=== PATIENT | female | born 1955 | race Caucasian/White ===

== ENCOUNTER → 2017-05-14 | Day surgery (SDC) | payer OTHER ==
[2017-05-08 15:44] LABS: BASOPHILS % 0.7 % (0.0-1.0); EOSINOPHILS # (AUTO) 0.1 (0.0-0.4); EOSINOPHILS % 1.4 % (0.0-6.0); HEMATOCRIT 41.4 % (34.2-44.1); HEMOGLOBIN 14.1 g/dL (12.0-16.0); LYMPHOCYTES # (AUTO) 1.2 (1.0-3.2); LYMPHOCYTES % 22.3 % (18.0-39.1); MEAN CORPUSCULAR HEMOGLOBIN 30.2 pg (28-32); MEAN CORPUSCULAR HGB CONC 34.1 g/dL (31-35); MEAN CORPUSCULAR VOLUME 88.7 fL (81-99); MONOCYTES # (AUTO) 0.5 (0.2-0.8); MONOCYTES % 8.6 % (4.4-11.3); NEUTROPHILS # (AUTO) 3.7 (2.1-6.9); NEUTROPHILS % 66.6 % (38.7-80.0); PLATELET COUNT 200 x10e3/uL (140-360); RED BLOOD COUNT 4.67 x10e6/uL (3.6-5.1); RED CELL DISTRIBUTION WIDTH 12.2 % (11.7-14.4)
[~2017-05-14] MED LIST: ANASTROZOLE1 MG PO; COQ-10100 MG PO; FENTANYL CITRATE/PF 100MCG/2 ML INJ ONE; MIDAZOLAM HCL 2 MG/2 ML VIAL ONE; PROPOFOL IV EMULSION 10 MG/ML 20 ML VIAL IV ONE; SIMVASTATIN40 MG PO
--- NOTE | 2017-05-14 08:26 | Operative Report ---
DATE OF PROCEDURE: May 14, 2017 PROCEDURE: Colonoscopy. PREOPERATIVE DIAGNOSIS: Patient with a family history of colon cancer, here for colon cancer screening. PROCEDURE: After informed written consent, premedications with monitored anesthesia care, standard adult video Olympus colonoscope was introduced into the rectum and all the way into the terminal ileum. The terminal ileum, cecum and appendiceal orifice all appeared to be normal. The ascending colon and transverse colon appeared to be normal. The descending and sigmoid showed scattered diverticulosis more so in the area of the sigmoid colon. Retroflexion in the rectum was normal. IMPRESSION: Diverticulosis in the sigmoid and descending colon. RECOMMENDATIONS: Stool for occult blood for every 2-3 years. Repeat colonoscopy in 5 years. Probiotics as needed. Patient to follow up in the office. Job#: [id number] RI cc:MAXWELL TALBERT MD
== END | disposition home or self-care (01) ==
LOC: OR 05:37
PROVIDERS: ATTEND Internal Medicine Gastroenterology
DX: Z12.11 Encounter for screening for malignant neoplasm of colon (principal); K57.30 Diverticulosis of large intestine without perforation or abscess without bleeding; E66.3 Overweight; Z01.812 Encounter for preprocedural laboratory examination; Z01.810 Encounter for preprocedural cardiovascular examination; Z68.27 Body mass index [BMI] 27.0-27.9, adult; Z85.3 Personal history of malignant neoplasm of breast; Z80.0 Family history of malignant neoplasm of digestive organs
CPT/HCPCS: 36415; 45378; 85025; 93005; J2250; G0105